=== PATIENT | male | born 1990 | race Native Hawaiian/Other Pacific Islander ===

== ENCOUNTER 2018-06-25 22:50 | Emergency (ER) | payer BC ==
[~2018-06-25] VITALS: Ht 167.6 cm; Wt 86.2 kg
[2018-06-26 01:21] LABS: PLATELET COUNT 242 K/uL (142-355)
[2018-06-26 01:29] LABS: POTASSIUM 4.4 mmol/L (3.6-5.2); SODIUM 139 mmol/L (136-145)
[2018-06-26 02:19] VITALS: BP 144/88; TEMP 98.8
== END 2018-06-26 02:19 | disposition home or self-care (01) ==
LOC: ED 22:50
PROVIDERS: Emergency Medicine
DX: R73.9 Hyperglycemia, unspecified (principal); E86.0 Dehydration; I49.8 Other specified cardiac arrhythmias
CPT/HCPCS: 36415; 80053; 83735; 84484; 85027; 93005; 96360; 99284

== ENCOUNTER 2020-08-26 14:54 | Outpatient (CLI) | payer BC | END 2020-08-26 21:14 | disposition home or self-care (01) | LOC: RAD 14:54 | PROVIDERS: ATTEND Nurse Practitioner Family | DX: E03.9 Hypothyroidism, unspecified (principal); E78.5 Hyperlipidemia, unspecified; G47.33 Obstructive sleep apnea (adult) (pediatric) | CPT/HCPCS: 93005 ==

== ENCOUNTER 2022-01-28 08:53 | Outpatient (CLI) | payer BC ==
[2022-01-28 10:06] LABS: PLATELET COUNT 257 K/uL (142-355)
[2022-01-28 10:20] LABS: POTASSIUM 4.1 mmol/L (3.6-5.2)
[2022-01-28 10:26] LABS: PARTIAL THROMBOPLASTIN TIME 28.1 SECONDS (24.5-33.6)
== END 2022-01-28 19:03 | disposition home or self-care (01) ==
LOC: RAD 08:53 → LABW 08:53
PROVIDERS: ATTEND Nurse Practitioner Family
DX: R07.89 Other chest pain (principal); R00.2 Palpitations
CPT/HCPCS: 36415; 80053; 82550; 82553; 84484; 85027; 85610; 85730; 93005; 93225

== ENCOUNTER 2022-06-28 02:20 | Emergency (ER) | payer BC ==
[~2022-06-28] VITALS: Ht 167.6 cm; Wt 74.8 kg
[2022-06-28 02:25] VITALS: TEMP 98.6
[2022-06-28 04:25] VITALS: BP 135/86
== END 2022-06-28 04:25 | disposition home or self-care (01) ==
LOC: ED 02:20
DX: J20.9 Acute bronchitis, unspecified (principal); F17.210 Nicotine dependence, cigarettes, uncomplicated
CPT/HCPCS: 93005; 94664; 99282